=== PATIENT | female | born 1945 | race Caucasian/White ===

== ENCOUNTER 2022-04-23 11:14 | Inpatient (IN) ==
[2022-04-23] MEDS ORDERED: SODIUM CHLORIDE 0.9% 1000ML 1,000 ML IV SCH (12:00)
--- NOTE | 2022-04-23 12:17 | XRay Report ---
XR chest 1V portable CLINICAL HISTORY: fall COMPARISON STUDY: No previous studies for comparison. FINDINGS: Left subclavian pacer/AICD is in place. There is severe osteoarthritis of both shoulders. N o pneumothorax or pleural effusion. No consolidation to suggest pneumonia. Cardiac size is normal. Me diastinal contours are normal. Pulmonary vascularity is normal. IMPRESSION: No acute cardiopulmonary findings. ACT 112: Negative or not required by law. Electronically signed by: Gaudencio Land M.D. 04/23/2022 12:16 PM
--- NOTE | 2022-04-23 12:19 | XRay Report ---
XR hip RT min 2V CLINICAL HISTORY: fall COMPARISON: None FINDINGS: Note is made of an acute comminuted intertrochanteric fracture of the right femur. Fractur e is displaced approximately 1.2 cm. Fracture is angulated. No acute fractures are identified within visualized portions of the pelvis. IMPRESSION: Acute comminuted, displaced and angulated intertrochanteric fracture of the right femur. ACT 112: Negative or not required by law. Electronically signed by: Gaudencio Land M.D. 04/23/2022 12:17 PM
[2022-04-23] MEDS ORDERED: MoRPHine SULFATE 2 MG/ML CARP IV STA (12:30)
[2022-04-23] MEDS ORDERED: ACETAMINOPHEN 1,000 MG/100 ML VIAL IV STA (12:30)
[2022-04-23] MEDS ORDERED: ONDANSETRON INJ 2 MG/ML 2 ML VIAL IV STA (12:30)
[2022-04-23 12:32] LABS: Basophils # (auto) 0.02 K/uL (0-0.2); Basophils % (auto) 0.3 %; Eosinophils # (auto) 0.09 K/uL (0-0.50); Eosinophils % (auto) 1.2 %; Hematocrit (blood only) 36.2 % (34.1-44.9); Hemoglobin 11.8 g/dl (12.0-16.0); Immature Granulocytes # (auto) 0.06 K/uL (0.00-0.02); Immature Granulocytes % (auto) 0.8 %; Lymphocytes # (auto) 0.72 K/uL (1.2-3.4); Lymphocytes % (auto) 9.8 %; Mean Corpuscular Hemoglobin 31.1 pg (25.0-34.0); Mean Corpuscular Hgb Conc 32.6 g/dL (32.0-36.0); Mean Corpuscular Volume 95.3 fL (80.0-100.0); Mean Platelet Volume 9.5 fL (9.4-12.3); Monocytes # (auto) 0.52 K/uL (0.24-0.82); Monocytes % (auto) 7.1 %; Neutrophils # (auto) 5.96 K/uL (1.4-6.5); Neutrophils % (auto) 80.8 %; Platelet Count 224 K/uL (130-400); RDW Coefficient of Variation 13.7 % (11.5-14.5); RDW Standard Deviation 47.8 fL (36.4-46.3); White Blood Count 7.37 K/ul (4.8-10.8)
[2022-04-23 12:42] LABS: Partial Thromboplastin Ratio 0.8; Partial Thromboplastin Time 21.5 Seconds (21.0-31.0); Prothrombin Time 10.6 Seconds (9.0-12.0)
[2022-04-23 12:55] LABS: Alanine Aminotransferase 11 U/L (7-52); Albumin Level 4.2 gm/dl (3.4-5.0); Alkaline Phosphatase 65 U/L (34-104); Anion Gap 10 (3-11); Aspartate Aminotransferase 19 U/L (13-39); BUN Creatinine Ratio 17.6 (10-20); Bilirubin,Total 0.5 mg/dl (0.2-1.0); Blood Urea Nitrogen 23 mg/dl (6-23); Calcium 9.2 mg/dl (8.5-10.1); Carbon Dioxide 28 mmol/L (21-32); Chloride 102 mmol/L (98-107); Est GFR (African American) 45.1 ml/min; Est GFR (Non-African American) 38.9 ml/min; Globulin 2.1 gm/dl (2.5-4.0); Glucose 110 mg/dl (70-99(Fasting)); Potassium 3.8 mmol/L (3.5-5.1); Sodium 140 mmol/L (136-145); Total Protein 6.3 gm/dl (6.0-8.3)
[2022-04-23 13:14] LABS: Appearance Urine Clear (Clear); Bilirubin Urine Negative (Negative); Blood Urine Negative (Negative); Color Urine Yellow; Glucose Urine UA Negative (Negative); Ketones Urine Negative (Negative); Leukocyte Esterase Urine Negative (Negative); Nitrite Urine Negative (Negative); Protein Urine Negative (Negative); Specific Gravity Urine 1.007 (1.000-1.030); Urobilinogen Urine Negative (Negative)
--- NOTE | 2022-04-23 13:21 | Emergency Department Note ---
Impression & Plan Fracture of right hip, Cardiomyopathy, H/O non-Hodgkin's lymphoma ED Provider Note CHIEF COMPLAINT: Right hip pain after fall HISTORY OF PRESENT ILLNESS: This 76-year-old female patient presents to the emergency department with complaints of right hip pain after a fall in the parking lot. Patient states she tripped and believes she fell onto her side. She denies any injury to the abdomen, chest, head or neck. She immediately felt pain in the right hip. She denies any syncope or chest palpitations. Patient states she fell last year over her cat and broke her left wrist. She also has an "artificial knee" in the left leg. Patient states a bystander lifted her into her son's car she was then unable to get out of the car without help from the hospital staff. She has not been able to bear weight on the right leg. The patient has had nothing to eat since last evening. She states she did not eat prior to the football game. REVIEW OF SYSTEMS: A review of systems was performed with positives and pertinent negatives listed in the history of present illness. 10 systems were reviewed and are otherwise negative. ALLERGIES: see below MEDICATIONS: see below PMH: see below SOCIAL HISTORY: see below DDx: Fracture, subluxation, dislocation, contusion, ligamentous injury, neurovascular, compartment syndrome, rhabdomyolysis, as well as other pathologies. PHYSICAL EXAM: Vital signs reviewed. General: Well-appearing 76-year-old female, in no significant distress. HEENT: No scleral icterus, PERRLA, neck supple. Atraumatic. Cardiovascular: Regular rate and rhythm, no extra sounds. Pulmonary: Clear to auscultation bilaterally, normal work of breathing. Abdomen: Soft, nontender, nondistended, positive bowel sounds. Musculoskeletal: Atraumatic, no peripheral edema. Tender to palpation in the right hip, pain with range of motion. Neurovascularly intact distally. Nontender to palpation over the cervical spine. Neurologic: Patient awake alert and oriented x 3, speech is clear Skin: Warm, dry, no rash EMERGENCY DEPARTMENT COURSE/MDM: This was evaluated and appeared to be in no significant distress. IV access was obtained and laboratory work was drawn. The patient was placed on the nurse monitoring and noted to be in a normal sinus rhythm. Patient was hydrated with normal saline solution, given IV morphine and Zofran with IV Tylenol for her discomfort. Patient's was very upset about the events preceding but was noted to have a fractured right hip on x-ray. She was informed of the findings. Orthopedics, Dr. Clemens was notified of her presence in the department. She was discussed with the hospitalist service will evaluate the patient for admission and further management. Patient expressed understanding of the plan and agreed. MONITORING: An order for cardiac monitoring was placed and the patient is noted to be in a paced rhythm at 70 beats per minute. RADIOLOGY: See below EKG: Atrially sensed and ventricularly paced at 63 bpm, normal ST segments. DISPOSITION: Admission Past Med/Surg History Medical History Anxiety Artificial cardiac pacemaker CHF (congestive heart failure) Depression Dyslipidemia Gout Herpetic gingivostomatitis Hypercholesteremia Hyperparathyroidism Hypertension Kidney disease, chronic, stage III (GFR 30-59 ml/min) Left bundle branch block (LBBB) Menopause Non Hodgkin's lymphoma remission Osteoarthritis Osteoporosis PONV (postoperative nausea and vomiting) Renal hypertension Social History Smoking Status: Never smoker Hx Alcohol Use: No Hx Substance Use: No Preferred Language: Kiswahili Communication Ability: Effective Music Coordinator Required: No Beliefs That Will Affect Care: None Current Living Situation: Spouse Feels Safe at Home: Yes Assistive Devices: Cane, Denture - Lower, Glasses and Walker Allergies Allergies Allergy/AdvReac Type Severity Reaction Status Date / Time No Known Allergies Allergy Unverified 04/24/22 07:07 Home Meds Home Medications Medication Instructions Recorded Confirmed Aspir-81 81 mg HS 04/23/22 04/23/22 allopurinol 100 mg tablet 100 mg DAILY 04/23/22 04/23/22 alprazolam 0.25 mg tablet 0.25 mg PO DAILY PRN severe anxiety 04/23/22 04/23/22 metoprolol succinate 50 mg 25 mg PO QAM 04/23/22 04/23/22 tablet,extended release 24 hr oxycodone-acetaminophen 5 mg-325 1 tab Q4H PRN Pain 04/23/22 04/23/22 mg tablet paroxetine HCl 10 mg tablet 10 mg PO DAILY 04/23/22 04/23/22 simvastatin 20 mg tablet 20 mg HS 04/23/22 04/23/22 torsemide 20 mg tablet 20 mg DAILY 04/23/22 04/23/22 Previous Rx's Medication Instructions Recorded apixaban 2.5 mg tablet (Eliquis) 2.5 mg PO BID 30 days #60 tabs 04/26/22 ergocalciferol (vitamin D2) 1,250 50,000 unit PO Q7D #4 caps 04/26/22 mcg (50,000 unit) capsule Results & Data (ED) Vital Signs Vital Signs - 24 hr 04/23/22 11:14 04/23/22 12:00 Temperature 36.5 C Temperature Source Temporal Artery Scan Pulse Rate 63 70 Pulse Rhythm Regular Respiratory Rate 18 16 Blood Pressure 120/74 Blood Pressure Mean 89 Pulse Oximetry 97 98 Oxygen Delivery Method Room Air Sepsis Recent Fever Within 48 Hours No Sepsis New/Unexplained Change in Mental Status N/A Sepsis Action Taken by Nursing No Action Required Home Medications Current Medication List: was personally reviewed by me Laboratory Data Attestation: I reviewed the patient's lab results. Result diagrams: 04/26/22 09:04 04/25/22 06:24 Lab Results 04/23/22 04/23/22 04/23/22 Range/Units 12:06 12:06 12:06 WBC 7.37 (4.8-10.8) K/ul RBC 3.80 L (3.93-5.22) M/uL Hgb 11.8 L (12.0-16.0) g/dl Hct 36.2 (34.1-44.9) % MCV 95.3 (80.0-100.0) fL MCH 31.1 (25.0-34.0) pg MCHC 32.6 (32.0-36.0) g/dL RDW Std Deviation 47.8 H (36.4-46.3) fL RDW Coeff of [place]per 13.7 (11.5-14.5) % Plt Count 224 (130-400) K/uL MPV 9.5 (9.4-12.3) fL Immature Gran % (Auto) 0.8 % Neut % (Auto) 80.8 % Lymph % (Auto) 9.8 % [place] % (Auto) 7.1 % Eos % (Auto) 1.2 % Baso % (Auto) 0.3 % Neut # (Auto) 5.96 (1.4-6.5) K/uL Lymph # (Auto) 0.72 L (1.2-3.4) K/uL [place] # (Auto) 0.52 (0.24-0.82) K/uL Eos # (Auto) 0.09 (0-0.50) K/uL Baso # (Auto) 0.02 (0-0.2) K/uL Immature Gran # (Auto) 0.06 H (0.00-0.02) K/uL PT 10.6 (9.0-12.0) Seconds INR 1.0 (0.9-1.1) APTT 21.5 (21.0-31.0) Seconds PTT Ratio 0.8 Sodium 140 (136-145) mmol/L Potassium 3.8 (3.5-5.1) mmol/L Chloride 102 (98-107) mmol/L Carbon Dioxide 28 (21-32) mmol/L Anion Gap 10 (3-11) BUN 23 (6-23) mg/dl Creatinine 1.31 H (0.6-1.2) mg/dl Est Cr Clr Drug Dosing Not Reportable Est GFR ( Amer) 45.1 ml/min Est GFR (Non-Af Amer) 38.9 ml/min BUN/Creatinine Ratio 17.6 (10-20) Glucose 110 H (70-99(Fasting)) mg/dl Calcium 9.2 (8.5-10.1) mg/dl Total Bilirubin 0.5 (0.2-1.0) mg/dl AST 19 (13-39) U/L ALT 11 (7-52) U/L Alkaline Phosphatase 65 (34-104) U/L Total Protein 6.3 (6.0-8.3) gm/dl Albumin 4.2 (3.4-5.0) gm/dl Globulin 2.1 L (2.5-4.0) gm/dl Albumin/Globulin Ratio 2.0 (0.9-2) Urine Color Urine Appearance (Clear) Urine pH (4.5-7.5) Ur Specific [place] (1.000-1.030) Urine Protein (Negative) Urine Glucose (UA) (Negative) Urine Ketones (Negative) Urine Blood (Negative) Urine Nitrite (Negative) Urine Bilirubin (Negative) Urine Urobilinogen (Negative) Ur Leukocyte Esterase (Negative) SARS-CoV-2, RNA, NAAT (NEGATIVE) 04/23/22 04/23/22 Range/Units 12:06 12:55 WBC (4.8-10.8) K/ul RBC (3.93-5.22) M/uL Hgb (12.0-16.0) g/dl Hct (34.1-44.9) % MCV (80.0-100.0) fL MCH (25.0-34.0) pg MCHC (32.0-36.0) g/dL RDW Std Deviation (36.4-46.3) fL RDW Coeff of [place] (11.5-14.5) % Plt Count (130-400) K/uL MPV (9.4-12.3) fL Immature Gran % (Auto) % Neut % (Auto) % Lymph % (Auto) % [place] % (Auto) % Eos % (Auto) % Baso % (Auto) % Neut # (Auto) (1.4-6.5) K/uL Lymph # (Auto) (1.2-3.4) K/uL [place] # (Auto) (0.24-0.82) K/uL Eos # (Auto) (0-0.50) K/uL Baso # (Auto) (0-0.2) K/uL Immature Gran # (Auto) (0.00-0.02) K/uL PT (9.0-12.0) Seconds INR (0.9-1.1) APTT (21.0-31.0) Seconds PTT Ratio Sodium (136-145) mmol/L Potassium (3.5-5.1) mmol/L Chloride (98-107) mmol/L Carbon Dioxide (21-32) mmol/L Anion Gap (3-11) BUN (6-23) mg/dl Creatinine (0.6-1.2) mg/dl Est Cr Clr Drug Dosing Est GFR ( Amer) ml/min Est GFR (Non-Af Amer) ml/min BUN/Creatinine Ratio (10-20) Glucose (70-99(Fasting)) mg/dl Calcium (8.5-10.1) mg/dl Total Bilirubin (0.2-1.0) mg/dl AST (13-39) U/L ALT (7-52) U/L Alkaline Phosphatase (34-104) U/L Total Protein (6.0-8.3) gm/dl Albumin (3.4-5.0) gm/dl Globulin (2.5-4.0) gm/dl Albumin/Globulin Ratio (0.9-2) Urine Color Yellow Urine Appearance Clear (Clear) Urine pH 5.0 (4.5-7.5) Ur Specific [place] 1.007 (1.000-1.030) Urine Protein Negative (Negative) Urine Glucose (UA) Negative (Negative) Urine Ketones Negative (Negative) Urine Blood Negative (Negative) Urine Nitrite Negative (Negative) Urine Bilirubin Negative (Negative) Urine Urobilinogen Negative (Negative) Ur Leukocyte Esterase Negative (Negative) SARS-CoV-2, RNA, NAAT NEGATIVE (NEGATIVE) Administered Medications Discontinued Medications Acetaminophen (Acetaminophen 325 Mg Tab) 650 mg PO Q8H PRN PRN Reason: MILD Pain or Fever Stop: 05/23/22 14:02 Last Admin: 04/26/22 05:48 Dose: 650 mg Documented By: Admin: 04/24/22 10:51 Dose: 650 mg Documented By: Admin: 04/23/22 22:39 Dose: 650 mg Documented By: [id number] Allopurinol (Allopurinol 100 Mg Tab) 100 mg PO DAILY [facility] Stop: 05/24/22 08:59 Last Admin: 04/26/22 08:09 Dose: 100 mg Documented By: Admin: 04/25/22 08:54 Dose: 100 mg Documented By: Admin: 04/24/22 07:55 Dose: 100 mg Documented By: ESTEFANÍA Apixaban (Apixaban 2.5 Mg Tab) 2.5 mg PO BID [facility] Stop: 05/25/22 08:59 Last Admin: 04/26/22 08:09 Dose: 2.5 mg Documented By: Admin: 04/25/22 20:44 Dose: 2.5 mg Documented By: Admin: 04/25/22 08:54 Dose: 2.5 mg Documented By: JUDITH Bupivacaine HCl/Epinephrine Bitart (Bupivacaine/Epinephrine 0.25% 1:200,000 30 Ml Vial) Confirm Administered Dose 30 ml .ROUTE .[facility] Stop: 04/24/22 12:16 Last Admin: 04/24/22 13:31 Dose: 30 ml Documented By: NICHOLAS Ergocalciferol (Ergocalciferol 50,000 Units 1250 Mcg Cap) 50,000 units PO Q7D CATHLEEN Stop: 05/25/22 09:29 Last Admin: 04/25/22 11:02 Dose: 50,000 units Documented By: JUDITH Sodium Chloride (Nss 1000ml) 1,000 mls @ 125 mls/hr IV .Q8H CATHLEEN Stop: 04/23/22 19:59 Last Infusion: 04/23/22 14:40 Dose: 0 mls/hr Documented By: Admin: 04/23/22 12:04 Dose: 125 mls/hr Documented By: FRANCISCO Acetaminophen (Ofirmev) 1,000 mg in 100 mls @ 400 mls/hr IV NOW STA Stop: 04/23/22 12:44 Last Infusion: 04/23/22 12:59 Dose: 0 mls/hr Documented By: Admin: 04/23/22 12:38 Dose: 400 mls/hr Documented By: STACY Cefazolin Sodium (Ancef 2000mg) 2,000 mg in 15 mls @ 3.75 mls/min IV PREOP ONE Stop: 04/24/22 12:40 Last Admin: 04/24/22 13:02 Dose: 3.75 mls/min Documented By: MARCUS Magnesium Hydroxide (Magnesium Hydroxide Susp 30 Ml Udc) 30 ml PO Q12H PRN PRN Reason: Constipation Stop: 05/23/22 14:02 Last Admin: 04/26/22 10:13 Dose: 30 ml Documented By: NITO Metoprolol Succinate (Metoprolol Succ 25mg Ext Rel Tab) 25 mg PO QAM CATHLEEN Stop: 05/24/22 08:59 Last Admin: 04/26/22 08:09 Dose: 25 mg Documented By: Admin: 04/25/22 08:54 Dose: 25 mg Documented By: Admin: 04/24/22 07:55 Dose: 25 mg Documented By: ESTEFANÍA Morphine Sulfate (Morphine Sulfate 2 Mg/Ml Carp) 2 mg IV NOW STA Stop: 04/23/22 12:31 Last Admin: 04/23/22 12:38 Dose: 2 mg Documented By: STACY Morphine Sulfate (Morphine Sulfate 2 Mg/Ml Carp) 1 mg IV Q6H PRN PRN Reason: SEVERE Pain Stop: 05/07/22 15:04 Last Admin: 04/25/22 10:52 Dose: 1 mg Documented By: Admin: 04/24/22 06:29 Dose: 1 mg Documented By: Admin: 04/23/22 23:42 Dose: 1 mg Documented By: GREG Ondansetron HCl (Ondansetron Inj 2 Mg/Ml 2 Ml Vial) 4 mg IV NOW STA Stop: 04/23/22 12:31 Last Admin: 04/23/22 12:38 Dose: 4 mg Documented By: STACY Ondansetron HCl (Ondansetron Inj 2 Mg/Ml 2 Ml Vial) 4 mg IV Q6H PRN PRN Reason: Nausea Stop: 05/23/22 14:02 Last Admin: 04/25/22 10:52 Dose: 4 mg Documented By: JUDITH Oxycodone/Acetaminophen (Oxycodone/Acetaminophen 5mg/325mg Tab) 1 tab PO Q4H PRN PRN Reason: MODERATE Pain Stop: 05/07/22 15:04 Last Admin: 04/26/22 10:13 Dose: 1 tab Documented By: Admin: 04/25/22 20:44 Dose: 1 tab Documented By: Admin: 04/25/22 15:45 Dose: 1 tab Documented By: Admin: 04/25/22 08:59 Dose: 1 tab Documented By: Admin: 04/23/22 16:01 Dose: 1 tab Documented By: [id number] Paroxetine HCl (Paroxetine Hcl 10 Mg Tab) 10 mg PO DAILY CATHLEEN Stop: 05/24/22 08:59 Last Admin: 04/26/22 08:09 Dose: 10 mg Documented By: Admin: 04/25/22 08:54 Dose: 10 mg Documented By: Admin: 04/24/22 07:55 Dose: 10 mg Documented By: ESTEFANÍA Simvastatin (Simvastatin 20 Mg Tab) 20 mg PO HS CATHLEEN Stop: 05/23/22 20:59 Last Admin: 04/25/22 20:44 Dose: 20 mg Documented By: Admin: 04/24/22 21:14 Dose: 20 mg Documented By: Admin: 04/23/22 20:23 Dose: 20 mg Documented By: [id number] Imaging Data Radiologist's Impression: Hip X-Ray 04/23/22 11:49 XR hip RT min 2V CLINICAL HISTORY: fall COMPARISON: None FINDINGS: Note is made of an acute comminuted intertrochanteric fracture of the right femur. Fracture is displaced approximately 1.2 cm. Fracture is angulated. No acute fractures are identified within visualized portions of the pelvis. IMPRESSION: Acute comminuted, displaced and angulated intertrochanteric fracture of the right femur. ACT 112: Negative or not required by law. Electronically signed by: Gaudencio Land M.D. 04/23/2022 12:17 PM Chest X-Ray 04/23/22 11:50 XR chest 1V portable CLINICAL HISTORY: fall COMPARISON STUDY: No previous studies for comparison. FINDINGS: Left subclavian pacer/AICD is in place. There is severe osteoarthritis of both shoulders. No pneumothorax or pleural effusion. No consolidation to suggest pneumonia. Cardiac size is normal. Mediastinal contours are normal. Pulmonary vascularity is normal. IMPRESSION: No acute cardiopulmonary findings. ACT 112: Negative or not required by law. Electronically signed by: Gaudencio Land M.D. 04/23/2022 12:16 PM Blood Pressure Blood Pressure Findings: Elevated blood pressure Blood Pressure Disposition: Referred to patients primary care provider Discharge Plan Visit Data Chief Complaint: Fall Stated Complaint: FALL ED Provider: Shweta Kumar Discharge Problem: Fracture of right hip, Cardiomyopathy, H/O non-Hodgkin's lymphoma Patient Disposition: Admitted As Inpatient Discharge Instructions Interventions: ED Discharge Assessment Last Done: 04/23/22 14:39
--- NOTE | 2022-04-23 13:53 | History & Physical Report ---
Date of Service April 23, 2022 Assessment & Plan (1) Intertrochanteric fracture of right hip: Plan Mechanical fall Right hip fracture on the background of age-related osteoporosis Patient tripped on her own shoes, fell on her right side on pavement Patient has only drank soda in the morning, has not eaten anything. Admitting hip x-ray with acute comminuted, displaced and angulated intertrochanteric fracture of the right femur Pain management, discussed with orthopedics, OR today later in the day, later canceled, resuming diet, n.p.o. midnight. RCRI index 6.0% 30-day risk of , CT or cardiac arrest for this needed surgery. Caution with HTN meds in perioperative period CBC in a.m., watch out for blood loss anemia Diet after surgery, PT OT and DVT prophylaxis per Ortho. Other chronic medical conditions: Medications reviewed with patient, resume other meds as and when able DVT prophylaxis: SCDs for now, for OR likely juan. Full code History of Present Illness Chief Complaint: Fall Primary Care Provider: Conor Lopez MD 76-year-old lady with PMH of hyperparathyroidism secondary to renal, gout, nonischemic cardiomyopathy likely secondary to chemotherapy in the past, HTN, systolic congestive heart failure, CKD stage IIIb, vitamin D deficiency, age- related osteoporosis, lymphoma, status post ICD and depression/anxiety presented to our hospital 04/23 after tripping/fall. Per patient, she was trying to get on the shuttle for football game today when she might have " self tripped"/caught her one shoe on another shoe, fell on right side on the pavement and found to have right femoral fracture in the ED. Patient reports being able to walk 3-4 blocks and able to climb 2-3 flight of stairs without chest pain or shortness of breath in the recent past, denies any fever/chills/cough/chest pain/palpitations/belly pain/acute changes in bowel or bladder habits/headache/dizziness/sore throat/other review of symptoms. Patient denies smoking tobacco/use of alcohol/use of recreational drugs. Family history of heart problems in uncle and cancer in mother. Cancer and hypertension in father. Full code Home Medications Medication Instructions Recorded Confirmed Type Aspir-81 81 mg HS 04/23/22 04/23/22 History allopurinol 100 mg tablet 100 mg DAILY 04/23/22 04/23/22 History alprazolam 0.25 mg tablet 0.25 mg PO DAILY PRN severe anxiety 04/23/22 04/23/22 History lisinopril 10 mg tablet 10 mg QAM 04/23/22 04/23/22 History metoprolol succinate 50 mg 25 mg PO QAM 04/23/22 04/23/22 History tablet,extended release 24 hr oxycodone-acetaminophen 5 mg-325 1 tab Q4H PRN Pain 04/23/22 04/23/22 History mg tablet paroxetine HCl 10 mg tablet 10 mg PO DAILY 04/23/22 04/23/22 History simvastatin 20 mg tablet 20 mg HS 04/23/22 04/23/22 History torsemide 20 mg tablet 20 mg DAILY 04/23/22 04/23/22 History Past Med/Surg History Medical History Anxiety Artificial cardiac pacemaker CHF (congestive heart failure) Depression Dyslipidemia Gout Herpetic gingivostomatitis Hypercholesteremia Hyperparathyroidism Hypertension Kidney disease, chronic, stage III (GFR 30-59 ml/min) Left bundle branch block (LBBB) Menopause Non Hodgkin's lymphoma remission Osteoarthritis Osteoporosis PONV (postoperative nausea and vomiting) Renal hypertension Social History Smoking Status: Former smoker Preferred Language: Bolivian Feels Safe at Home: Yes Review of Systems Review of Systems: Negative otherwise mentioned in HPI. Physical Exam Physical Exam: GENERAL: Alert and oriented x3. NAD, on RA. HEENT: No pallor, no icterus. Pupils equal, round and reactive to light. Oral mucosa moist. NECK: No JVD, no neck masses. HEART: S1 and S2 heard. Regular rate and rhythm. No murmur, no gallop. RESPIRATORY SYSTEM: Normal AP diameter. No accessory muscle use. No wheezing, no crackles. ABDOMEN: Soft, bowel sounds present, nontender, no distention. CENTRAL NERVOUS SYSTEM: No facial droop. Speech is clear. Obeys simple commands. Moves extremities. EXTREMITIES: No edema, no erythema seen. RLE w/ decrease ROM, Rt Hip tender w/ palpation/movement. distal NV status wnl. No open wound or bruise on Rt hip. Urinary catheter with maile urine collection noted. Results & Data Results & Data ([facility]) Vital Signs (Past 12 Hours) Vital Signs Temp Pulse Resp BP Pulse Ox O2 Del Method 04/23/22 12:00 70 16 98 Room Air 04/23/22 11:14 36.5 C 63 18 120/74 97
--- NOTE | 2022-04-23 13:55 | Orthopedic Consultation ---
Date of Service April 23, 2022 Assessment & Plan (1) Intertrochanteric fracture of right hip: We discussed the diagnosis and treatment options with her and her . I recommended proceeding with an intramedullary nail fixation of her right hip. Her and her understand the risk, benefits, and alternatives procedure elected to proceed. Questions were answered at bedside and consents were signed. Time was spent scribed procedure and post expectations. We will likely proceed with the surgery tomorrow. History of Present Illness Reason for Consultation: Intertrochanteric fracture of the right hip. Requesting Physician: . Crystal is a pleasant 76-year-old female who is an independent ambulator without assistance. She lives with her . She fell in a parking lot earlier today and sustained a right intertrochanteric hip fracture. She came to the emergency room. Radiographs confirm the fracture. She was admitted to the medical service. Orthopedics was consulted to evaluate and treat.. Past Med/Surg History Medical History Anxiety Artificial cardiac pacemaker CHF (congestive heart failure) Depression Dyslipidemia Gout Herpetic gingivostomatitis Hypercholesteremia Hyperparathyroidism Hypertension Kidney disease, chronic, stage III (GFR 30-59 ml/min) Left bundle branch block (LBBB) Menopause Non Hodgkin's lymphoma remission Osteoarthritis Osteoporosis PONV (postoperative nausea and vomiting) Renal hypertension Social History Smoking Status: Former smoker Preferred Language: Gabonese Feels Safe at Home: Yes Review of Systems All systems reviewed & are unremarkable except as noted in HPI & below. Physical Exam On physical examination of the right hip, she is shortened and externally rotated. Her skin quality looks good.. Constitutional WD/WN, vitals as above Eyes PERRL, conjunctivae normal, anicteric sclerae ENMT external ear and nose normal, oropharynx normal Neck trachea midline, no thyromegaly Respiratory normal respiratory effort, lungs clear to auscultation Cardiovascular RRR, no murmur, no edema Gastrointestinal (Abdomen) normal bowel sounds, soft, nontender, no hepatosplenomegaly Skin no rashes, warm and dry Psychiatric A+Ox3, euthymic affect Results & Data Results & Data Laboratory Results . Diagnostic Findings X-rays of the right hip show a displaced right intertrochanteric hip fracture.. PG Care Time/CCT Total # of Minutes Spent Total Time Spent with Patient: Total time spent is greater than 50% in coordination of care (as documented) at patient's floor/unit and/or counseling patient: Coding Level of Care Code 89717 Inpt Consult Level 4 (57 - DECISION FOR SURGERY) Diagnoses Intertrochanteric fracture of right hip S72.141A
[2022-04-23] MEDS ORDERED: MAGNESIUM HYDROXIDE SUSP 30 ML UDC PO PRN (14:03)
[2022-04-23] MEDS ORDERED: ONDANSETRON INJ 2 MG/ML 2 ML VIAL IV PRN (14:03)
[2022-04-23] MEDS ORDERED: POLYETHYLENE (MIRALAX) 17 GM PACK PO PRN (14:03)
[2022-04-23] MEDS ORDERED: ALUMINUM/MAGNESIUM SUSP 30 ML UDC PO PRN (14:03)
--- NOTE | 2022-04-23 15:59 | Anesthesiology Consultation ---
Date of Service April 23, 2022 Assessment & Plan Chart Review Chart Review: Patient NOT seen in Pre Admission Testing Consults Requested cardiac ASA ASA4 Proposed Anesthesia Anesthesia Type: General Anesthesia Line Insertion: Arterial line History Surgery Operation Date: 04/23/22 15:30 Proposed Procedures p Right Intramedullary Samy Femur(Right) - Taurus Clemens DO Operation Date: 04/24/22 10:00 Proposed Procedures p Right Intramedullary Samy Femur(Right) - Taurus Clemens DO Height/Weight Height: 5 ft 4 in Weight: 66.6 kg Medications Home Medications Medication Instructions Recorded Confirmed Last Taken Aspir-81 81 mg HS 04/23/22 04/23/22 Unknown allopurinol 100 mg tablet 100 mg DAILY 04/23/22 04/23/22 Unknown alprazolam 0.25 mg tablet 0.25 mg PO DAILY PRN severe anxiety 04/23/22 04/23/22 Unknown lisinopril 10 mg tablet 10 mg QAM 04/23/22 04/23/22 Unknown metoprolol succinate 50 mg 25 mg PO QAM 04/23/22 04/23/22 Unknown tablet,extended release 24 hr oxycodone-acetaminophen 5 mg-325 1 tab Q4H PRN Pain 04/23/22 04/23/22 Unknown mg tablet paroxetine HCl 10 mg tablet 10 mg PO DAILY 04/23/22 04/23/22 Unknown simvastatin 20 mg tablet 20 mg HS 04/23/22 04/23/22 Unknown torsemide 20 mg tablet 20 mg DAILY 04/23/22 04/23/22 Unknown Active Medications Generic Name Dose Route Start Last Admin Trade Name Freq PRN Reason Stop Dose Admin Sodium Chloride 1,000 mls @ 125 mls/hr 04/23/22 12:00 04/23/22 14:40 Nss 1000ml IV 04/23/22 19:59 Infused .Q8H CATHLEEN Infusion Past Medical History Medical History Anxiety Artificial cardiac pacemaker CHF (congestive heart failure) Depression Dyslipidemia Gout Herpetic gingivostomatitis Hypercholesteremia Hyperparathyroidism Hypertension Kidney disease, chronic, stage III (GFR 30-59 ml/min) Left bundle branch block (LBBB) Menopause Non Hodgkin's lymphoma remission Osteoarthritis Osteoporosis PONV (postoperative nausea and vomiting) Renal hypertension Exercise / Class Metabolic Activity III < 4 Walking/Shop/Light housework Past Anesthesia History No Hx of Anesthesia Complications and No Family Hx of Anesthesia Complications History of PONV No Hx of PONV and No Hx of Motion Sickness Social History Smoking Status: Never smoker Hx Alcohol Use: No Hx Substance Use: No Physical Exam Vital Signs Last Vital Signs Temp 36.7 C 04/23/22 15:12 Pulse 61 04/23/22 15:12 Resp 18 04/23/22 15:12 BP 166/71 H 04/23/22 15:12 Pulse Ox 97 04/23/22 15:12 O2 Del Method 04/23/22 15:12 Testing Laboratory Results 04/23/22 12:06 04/23/22 12:06 PT 10.6 Seconds (9.0-12.0) 04/23/22 12:06 INR 1.0 (0.9-1.1) 04/23/22 12:06 APTT 21.5 Seconds (21.0-31.0) 04/23/22 12:06 Urine Color Yellow 04/23/22 12:55 Urine Appearance Clear (Clear) 04/23/22 12:55 Urine pH 5.0 (4.5-7.5) 04/23/22 12:55 Ur Specific [place] 1.007 (1.000-1.030) 04/23/22 12:55 Urine Protein Negative (Negative) 04/23/22 12:55 Urine Glucose (UA) Negative (Negative) 04/23/22 12:55 Urine Ketones Negative (Negative) 04/23/22 12:55 Urine Nitrite Negative (Negative) 04/23/22 12:55 Ur Leukocyte Esterase Negative (Negative) 04/23/22 12:55 Electrocardiogram Date: 04/23/22 Atrial sensed,ventricular paced @ 63 Chest X-Ray Date: 04/23/22 Findings: + NAD left subclavian pacer/aicd in situ
[2022-04-23] MEDS: oxyCODONE/ACETAMINOPHEN 5mg/325mg TAB PO PRN (16:01)
--- NOTE | 2022-04-23 16:19 | Communication Note ---
Date of Service: April 23, 2022 I have spoken w/ [facility] hospitalist,Dr Victor, about lack of medical and cardiology records of patient. He said he will access the [employer] system and make copies of her records and scan them into her chart here at [facility].
[2022-04-23] MEDS: SIMVASTATIN 20 MG TAB PO SCH (20:23)
[2022-04-23] MEDS: ACETAMINOPHEN 325 MG TAB PO PRN (22:39)
[2022-04-23] MEDS: MoRPHine SULFATE 2 MG/ML CARP IV PRN (23:42)
[2022-04-24] MEDS: MoRPHine SULFATE 2 MG/ML CARP IV PRN (06:29)
[2022-04-24 07:01] LABS: Hematocrit (blood only) 32.8 % (34.1-44.9); Hemoglobin 10.9 g/dl (12.0-16.0); Mean Corpuscular Hemoglobin 31.2 pg (25.0-34.0); Mean Corpuscular Hgb Conc 33.2 g/dL (32.0-36.0); Mean Platelet Volume 9.3 fL (9.4-12.3); Platelet Count 176 K/uL (130-400); RDW Coefficient of Variation 13.9 % (11.5-14.5); RDW Standard Deviation 47.4 fL (36.4-46.3); Red Blood Count 3.49 M/uL (3.93-5.22); White Blood Count 5.51 K/ul (4.8-10.8)
[2022-04-24 07:30] LABS: BUN Creatinine Ratio 18.3 (10-20); Calcium 8.3 mg/dl (8.5-10.1); Creatinine Clr Calc Pharmacy 36.4 ml/min; Est GFR (African American) 50.1 ml/min; Est GFR (Non-African American) 43.3 ml/min; Phosphorus 3.5 mg/dl (2.5-4.9); Potassium 3.7 mmol/L (3.5-5.1)
[2022-04-24] MEDS: PARoxetine HCL 10 MG TAB PO SCH (07:55)
[2022-04-24] MEDS: METOPROLOL SUCC 25MG EXT REL TAB PO SCH (07:55)
[2022-04-24] MEDS: allopurinoL 100 MG TAB PO SCH (07:55)
--- NOTE | 2022-04-24 08:58 | Communication Note ---
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 He conveyed pertinent information to me. Echo(05/26/2021) LVEF-45%;normal valves; her EF has improved from 20-25%. 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 She was last seen in clinic in December 2021. She was stable w/o s/sx's of heart narindermichelle osuna. She has a BIV AICD. she is not pacemaker dependent. It's OK to place a magnet over AICD during surgery.
[2022-04-24] MEDS ORDERED: lisinopril 10 MG TAB PO SCH (09:00)
[2022-04-24] MEDS ORDERED: TORSEMIDE 20 MG TAB PO SCH (09:00)
[2022-04-24] MEDS: ACETAMINOPHEN 325 MG TAB PO PRN (10:51)
[2022-04-24] MEDS ORDERED: fentaNYL citrate 100 MCG/2 ML VIAL ONE (12:06)
[2022-04-24] MEDS ORDERED: PROPOFOL IV EMULSION 10 MG/ML 20 ML VIAL IV ONE (12:06)
[2022-04-24] MEDS ORDERED: ONDANSETRON INJ 2 MG/ML 2 ML VIAL ONE (12:06)
[2022-04-24] MEDS ORDERED: MIDAZOLAM HCL 1 MG/ML 2ML VIAL ONE (12:06)
[2022-04-24] MEDS ORDERED: LIDOCAINE 2% MPF LOCAL 5 ML VIAL INFIL ONE (12:06)
[2022-04-24] MEDS ORDERED: DEXAMETHASONE SOD INJ 4 MG/ML VIAL ONE (12:06)
[2022-04-24] MEDS ORDERED: BUPIVACAINE/EPINEPHRINE 0.25% 1:200,000 30 ML VIAL ONE (12:15)
[2022-04-24] MEDS ORDERED: fentaNYL citrate 100 MCG/2 ML VIAL IV PRN (12:31)
[2022-04-24] MEDS ORDERED: LABETALOL HCL IV 5 MG/ML 20ML IV PRN (12:31)
[2022-04-24] MEDS ORDERED: ePHEDrine sulfate 50 MG/ML AMP IV PRN (12:31)
[2022-04-24] MEDS ORDERED: HYDROmorphone INJ 1 MG/ML SYRINGE IV PRN (12:31)
[2022-04-24] MEDS ORDERED: PROMETHAZINE HCL 12.5 MG in SODIUM CHLORIDE 0.9% 50 ML IV PRN (12:31)
[2022-04-24] MEDS ORDERED: FLUMAZENIL 0.1 MG/1 ML 10 ML VIAL IV PRN (12:31)
[2022-04-24] MEDS ORDERED: ONDANSETRON INJ 2 MG/ML 2 ML VIAL IV PRN (12:31)
[2022-04-24] MEDS ORDERED: ATROPINE SULFATE 0.1 MG/ML 10ML SYR IV PRN (12:31)
[2022-04-24] MEDS ORDERED: NALOXONE HCL 0.4 MG/1 ML VIAL/CARP IV PRN (12:31)
[2022-04-24] MEDS ORDERED: ceFAZolin 2000MG 2,000 MG/15 ML SYR IV ONE (12:37)
[2022-04-24] MEDS ORDERED: ceFAZolin 330 MG/ML 1 GM VIAL ONE (13:05)
[2022-04-24] MEDS ORDERED: ePHEDrine sulfate 50 MG/ML SYR ONE (13:25)
--- NOTE | 2022-04-24 13:41 | Fluoroscopy Report ---
FL hip RT 2-3V HISTORY: 76 years-old Female RIGHT TROCH NAIL acute fracture of the right hip COMPARISON: Right hip radiographs 04/23/2022 TECHNIQUE: 4 spot fluoroscopic images of the right hip were obtained utilizing 45.0 seconds fluorosco py time FINDINGS: Status post placement of an intratrochanteric nail with medullary pamella fixating the acute intertrochan teric fracture. There is improved near anatomic alignment. The hardware appears intact. Moderate righ t hip osteoarthritis. Expected postoperative soft tissue swelling with deep tissue air. No unexpected opaque foreign body identified. IMPRESSION: Fluoroscopic assistance as above. ACT 112: Negative or not required by law. The above report was generated using voice recognition software. It may contain grammatical, syntax o r spelling errors. Electronically signed by: zO Llanos M.D. 04/24/2022 1:40 PM
--- NOTE | 2022-04-24 14:01 | Operative Report ---
PG Post Operative Report Pre & Post Diagnosis Operation Date: 04/23/22 15:30 <No data on this case meets the specified criteria> Operation Date: 04/24/22 10:00 Pre-Op Diagnosis: Intertrochanteric fracture of right hip. Post-Op Diagnosis: Intertrochanteric fracture of right hip. I identified the patient and participated in the time-out.: Yes Procedure Operation Date: 04/23/22 15:30 <No data on this case meets the specified criteria> Operation Date: 04/24/22 10:00 Actual Procedures p intramedullary nail fixation of the right femur (Right) - Taurus Clemens DO Surgeon Taurus Clemens DO Golf Ball Marker None Estimated Blood Loss 30 Findings Consistent with Post-Op Diagnosis Specimens None Description of Procedure On April 24 2022 Crystal was brought down from her hospital room to the preoperative holding area. The operative extremity identified and signed. She was given a preoperative antibiotic. She was taken back the operating room and put under general anesthesia on the hospital bed. She was then transferred to the fracture table. The right hip was then brought out to traction. Anatomic alignment of the fracture was checked under fluoroscopy. The right hip was then prepped and draped in sterile fashion. A timeout was done. The patient and the operative extremity was properly identified. A longitudinal incision was made just superior to the greater trochanter. Dissection was taken down through the fascia. A guidepin was placed at the tip of the greater trochanter. It was advanced down the femoral canal. Appropriate alignment of the guidepin was checked on orthogonal fluoroscopic images. The proximal femur was then opened up with a 17 mm opening reamer. A 11 mm Synthes TFN short nail was then impacted into place. Appropriate placement was checked on fluoroscopy. A lateral incision was made and the cannula for the helical blade was advanced to the lateral cortex of the femur. A guidepin was placed into the center center position of the femoral head. The helical blade measured to be 90 mm. The lateral cortex was drilled and the helical blade was drilled. The final helical blade was then impacted into place. I was happy with the overall alignment. The fracture was then compressed. The setscrew was then tightened and then released to allow dynamic slide of the helical blade. Attention was turned to the distal locking screw. A cannula was advanced to the lateral cortex of the femur. The distal screw was then drilled and a 32 mm distal locking screw was placed. All cannulas and outriggers were removed. Final fluoroscopic images showed anatomic alignment of the fracture and good placement of the hardware. The wounds were then irrigated. Surrounding soft tissue was injected with 30 cc of Marcaine. The deep fascia was closed with #1 Vicryl. Skin was closed with 2-0 Vicryl and fifi. She was then placed in a soft dressing. She was then extubated and transferred back to the hospital bed. She was taken to the postanesthesia care unit in stable condition. She tolerated the procedure well. I attest to the content of the Intraoperative Record and any orders documented therein. Any exceptions are noted below.
--- NOTE | 2022-04-24 14:15 | Hospitalist Progress Note ---
Date of Service April 24, 2022 Assessment & Plan (1) Intertrochanteric fracture of right hip: Plan Mechanical fall Right hip fracture on the background of age-related osteoporosis Patient tripped on her own shoes, fell on her right side on pavement Admitting hip x-ray with acute comminuted, displaced and angulated intertrochanteric fracture of the right femur for OR today no medical contraindication to proceed with Ortho surgery PRN Percocet, Morphine Lovenox, or Heparin for DVT prophylaxis when ok with Ortho Nonischemic cardiomyopathy, status post AICD Hypertension --Hold torsemide and lisinopril Chronic medical conditions: Hyperparathyroidism Gout Osteoporosis Vitamin D deficiency DVT prophylaxis: SCDs for now, for OR likely juan. Full code Disposition PT and OT evaluation Admission and Anticipated Discharge Date Admission Date: April 23, 2022 Subjective ff up for R hip fracture, etc seen resting in bed, not in distress has R hip pain with movement no chest pain, dyspnea, palpitations, dizziness no other symptoms Review of Systems Review of Systems: all noted and negative except for above Physical Exam Physical Exam: General- oriented x 3, not in distress, speaks in sentences with no effort or accessory muscle use Eyes- anicteric Neck- no JVD Lungs- clear BS bilaterally, no rales/wheezes Heart- normal rate, regular rhythm; no murmurs Abdomen- normal bowel sounds, nondistended, soft, no tenderness Extremities- no pretibial edema, no calf tenderness Neuro- alert, oriented x 3; no gross focal neurologic deficits Skin- warm & dry Results & Data Results & Data ([facility]) Vital Signs (Past 12 Hours) Vital Signs Temp Pulse Resp BP BP Pulse Ox O2 Del Method 04/24/22 12:23 37.1 C 88 18 145/75 H 92 Room Air 04/24/22 06:34 36.8 C 76 18 117/57 L 92 Room Air 04/24/22 04:17 36.4 C L 70 17 121/72 92 Room Air all noted and reviewed including below
--- NOTE | 2022-04-24 14:33 | Anesthesiology Progress Note ---
Date of Service April 24, 2022 Anesthesia Post Procedure Vital Signs Vital Signs: Temp Pulse Pulse Pulse Resp BP BP 04/24/22 14:05 83 21 118/77 118/77 04/24/22 13:56 36.3 C L 87 19 162/79 H 162/79 H 04/24/22 12:23 37.1 C 88 18 145/75 H 04/24/22 06:34 36.8 C 76 18 117/57 L 04/24/22 04:17 36.4 C L 70 17 121/72 04/24/22 00:07 70 04/23/22 23:17 36.9 C 69 18 134/78 04/23/22 18:40 36.5 C 70 16 147/78 H 04/23/22 16:02 66 04/23/22 15:12 36.7 C 61 18 166/71 H 04/23/22 14:38 52 L 16 138/83 Pulse Ox O2 Del Method O2 Flow Rate 04/24/22 14:05 95 Oxymask 6 04/24/22 13:56 93 Oxymask 6 04/24/22 12:23 92 Room Air 04/24/22 06:34 92 Room Air 04/24/22 04:17 92 Room Air 04/24/22 00:07 04/23/22 23:17 94 Room Air 04/23/22 18:40 96 Room Air 04/23/22 16:02 04/23/22 15:12 97 Room Air 04/23/22 14:38 96 Room Air Pain Intensity Right Hip: Pain Intensity: 4 Transfer of Care Handoff Completed per policy Notes Mental Status: alert / awake / arousable Patient Amnestic to Procedure: Yes Nausea / Vomiting: adequately controlled Pain: adequately controlled Airway Patency, RR, SpO2: stable & adequate BP & HR: stable & adequate Hydration State: stable & adequate Anesthetic Complications: no major complications apparent
--- NOTE | 2022-04-24 14:47 | Electrocardiogram Report ---
Test Reason : Blood Pressure : / mmHG Vent. Rate : 063 BPM Atrial Rate : 063 BPM P-R Int : 174 ms QRS Dur : 082 ms QT Int : 444 ms P-R-T Axes : 007 -02 -69 degrees QTc Int : 454 ms Poor data quality, interpretation may be adversely affected Sinus Rhythm with some atrial paced beats V paced (possible his pacing) Abnormal ECG No previous ECGs available Confirmed by Guy Carvalho ([id number]) on 04/24/2022 2:46:48 PM Referred By: REFERRED SELF Confirmed By:Guy Carvalho
[2022-04-24] MEDS ORDERED: ALPRAZolam 0.25 MG TABLET PO PRN (15:19)
[2022-04-24] MEDS: SIMVASTATIN 20 MG TAB PO SCH (21:14)
[2022-04-25 06:56] LABS: Hematocrit (blood only) 28.2 % (34.1-44.9); Hemoglobin 9.3 g/dl (12.0-16.0); Immature Granulocytes # (auto) 0.04 K/uL (0.00-0.02); Immature Granulocytes % (auto) 0.4 %; Lymphocytes % (auto) 5.5 %; Mean Corpuscular Hemoglobin 31.2 pg (25.0-34.0); Mean Corpuscular Volume 94.6 fL (80.0-100.0); Mean Platelet Volume 9.6 fL (9.4-12.3); Monocytes % (auto) 5.5 %; Neutrophils % (auto) 88.6 %; Platelet Count 161 K/uL (130-400); RDW Coefficient of Variation 13.6 % (11.5-14.5); RDW Standard Deviation 46.2 fL (36.4-46.3); Red Blood Count 2.98 M/uL (3.93-5.22); White Blood Count 9.14 K/ul (4.8-10.8)
[2022-04-25 07:58] LABS: BUN Creatinine Ratio 21.5 (10-20); Calcium 8.2 mg/dl (8.5-10.1); Creatinine Clr Calc Pharmacy 40.9 ml/min; Est GFR (African American) 57.6 ml/min; Est GFR (Non-African American) 49.7 ml/min; Potassium 4.1 mmol/L (3.5-5.1)
[2022-04-25] MEDS: allopurinoL 100 MG TAB PO SCH (08:54)
[2022-04-25] MEDS: PARoxetine HCL 10 MG TAB PO SCH (08:54)
[2022-04-25] MEDS: APIXABAN 2.5 MG TAB PO SCH ×2 (08:54→20:44)
[2022-04-25] MEDS: METOPROLOL SUCC 25MG EXT REL TAB PO SCH (08:54)
[2022-04-25] MEDS: oxyCODONE/ACETAMINOPHEN 5mg/325mg TAB PO PRN ×3 (08:59→20:44)
[2022-04-25] MEDS ORDERED: ERGOCALCIFEROL 50,000 UNITS 1250 MCG CAP PO SCH (09:30)
[2022-04-25] MEDS: MoRPHine SULFATE 2 MG/ML CARP IV PRN (10:52)
--- NOTE | 2022-04-25 12:20 | Hospitalist Progress Note ---
Date of Service April 25, 2022 Assessment & Plan (1) Intertrochanteric fracture of right hip: Plan Mechanical fall Right hip fracture on the background of age-related osteoporosis Patient tripped on her own shoes, fell on her right side on pavement 04/24/2007/03/2022: Status post right intramedullary pamella placement, right femur, by Dr. Clemens Doing well postop PRN Percocet, Morphine On Eliquis 2.5 mg p.o. twice daily for DVT prophylaxis PT and OT evaluation: Recommending rehab Nonischemic cardiomyopathy, status post AICD Hypertension --Hold torsemide and lisinopril Chronic medical conditions: Hyperparathyroidism Gout Osteoporosis Vitamin D deficiency DVT prophylaxis: Eliquis 2.5 mg p.o. twice daily Full code Disposition PT and OT evaluation: Recommending rehab Admission and Anticipated Discharge Date Admission Date: April 23, 2022 Subjective Follow-up right hip fracture, status post surgery, etc. Seen resting in bed, comfortable in good spirits States she feels fine overall Minimal right hip pain with movement No shortness of breath no chest pain, dizziness No other symptoms Review of Systems Review of Systems: all noted and negative except for above Physical Exam Physical Exam: General- oriented x 3, not in distress, speaks in sentences with no effort or accessory muscle use Eyes- anicteric Neck- no JVD Lungs- clear breath sounds bilaterally, no rales/wheezes Heart- normal rate, regular rhythm; no murmurs Abdomen- normal bowel sounds, nondistended, soft, nontender Extremities- no pretibial edema, no calf tenderness Right hip, moderate edema, no hematoma, dressing in place, no bleeding or discharge Neuro- alert, oriented x 3; no gross focal neurologic deficits Skin- warm & dry Results & Data Results & Data ([facility]) Vital Signs (Past 12 Hours) Vital Signs Temp Pulse Pulse Pulse Resp BP Pulse Ox 04/25/22 11:41 36.8 C 78 18 121/68 96 04/25/22 08:00 04/25/22 07:59 36.1 C L 86 16 138/76 95 04/25/22 07:02 73 04/25/22 04:19 36.7 C 71 20 133/80 95 04/25/22 00:47 70 O2 Del Method 04/25/22 11:41 Room Air 04/25/22 08:00 Room Air 04/25/22 07:59 Room Air 04/25/22 07:02 04/25/22 04:19 Room Air 04/25/22 00:47 all noted and reviewed including below
--- NOTE | 2022-04-25 18:00 | Orthopedic Progress Note ---
Date of Service April 25, 2022 Assessment & Plan (1) Intertrochanteric fracture of right hip: Overall she is doing as well as expected. She can be weightbearing as tolerated on her right hip. She is on Eliquis 2.5 mg twice a day for DVT prophylaxis for 6 weeks. She can be discharged when medically ready. She will follow-up with orthopedics in 2 weeks for staple removal. Full orthopedic discharge instructions were placed in the discharge summary. Please contact me if you have any further questions. Beth Rojas was seen and examined at bedside this afternoon. Overall she is doing fairly well. She was able to put a little bit of weight on her right hip today with therapy. Her pain is well controlled and she has no complaints.. Review of Systems All systems reviewed & are unremarkable except as noted in HPI & below. Physical Exam On physical examination of the right hip, the dressings are clean and dry. She has active dorsiflexion plantarflexion of her right ankle. Her leg lengths are equal. Sensation is intact.. Results & Data Results & Data Laboratory Results . Diagnostic Findings . PG Care Time/CCT Total # of Minutes Spent Total Time Spent with Patient: Total time spent is greater than 50% in coordination of care (as documented) at patient's floor/unit and/or counseling patient: Coding Level of Care Code 68122 Post Operative Follow-Up Diagnoses Intertrochanteric fracture of right hip S72.141A
[2022-04-25] MEDS: SIMVASTATIN 20 MG TAB PO SCH (20:44)
[2022-04-26] MEDS: ACETAMINOPHEN 325 MG TAB PO PRN (05:48)
[2022-04-26] MEDS: METOPROLOL SUCC 25MG EXT REL TAB PO SCH (08:09)
[2022-04-26] MEDS: allopurinoL 100 MG TAB PO SCH (08:09)
[2022-04-26] MEDS: APIXABAN 2.5 MG TAB PO SCH (08:09)
[2022-04-26] MEDS: PARoxetine HCL 10 MG TAB PO SCH (08:09)
[2022-04-26 09:57] LABS: Basophils # (auto) 0.03 K/uL (0-0.2); Basophils % (auto) 0.5 %; Eosinophils # (auto) 0.17 K/uL (0-0.50); Eosinophils % (auto) 2.6 %; Hemoglobin 9.2 g/dl (12.0-16.0); Immature Granulocytes # (auto) 0.03 K/uL (0.00-0.02); Immature Granulocytes % (auto) 0.5 %; Lymphocytes # (auto) 0.77 K/uL (1.2-3.4); Lymphocytes % (auto) 11.6 %; Mean Corpuscular Hemoglobin 31.2 pg (25.0-34.0); Mean Corpuscular Hgb Conc 32.9 g/dL (32.0-36.0); Mean Corpuscular Volume 94.9 fL (80.0-100.0); Mean Platelet Volume 9.7 fL (9.4-12.3); Monocytes # (auto) 0.46 K/uL (0.24-0.82); Monocytes % (auto) 6.9 %; Neutrophils # (auto) 5.18 K/uL (1.4-6.5); Neutrophils % (auto) 77.9 %; Platelet Count 174 K/uL (130-400); RDW Standard Deviation 48.5 fL (36.4-46.3); Red Blood Count 2.95 M/uL (3.93-5.22); White Blood Count 6.64 K/ul (4.8-10.8)
[2022-04-26] MEDS: oxyCODONE/ACETAMINOPHEN 5mg/325mg TAB PO PRN (10:13)
--- NOTE | 2022-04-26 13:02 | Hospitalist Progress Note ---
Date of Service April 26, 2022 Assessment & Plan (1) Intertrochanteric fracture of right hip: Plan Mechanical fall Right hip fracture on the background of age-related osteoporosis Patient tripped on her own shoes, fell on her right side on pavement 04/24/2007/03/2022: Status post right intramedullary pamella placement, right femur, by Dr. Clemens remains stable overall PRN Percocet, Morphine On Eliquis 2.5 mg p.o. twice daily for DVT prophylaxis PT and OT evaluation: Recommending rehab, awaiting acceptance Nonischemic cardiomyopathy, status post AICD Hypertension -- euvolemic BP on the lower side --Hold torsemide and lisinopril -- re-evaluated volume status daily Chronic medical conditions: Hyperparathyroidism Gout Osteoporosis Vitamin D deficiency DVT prophylaxis: Eliquis 2.5 mg p.o. twice daily Full code Disposition PT and OT evaluation: Recommending rehab, awaiting acceptance Admission and Anticipated Discharge Date Admission Date: April 23, 2022 Subjective ff up s/p R hip fracture surgery, etc seen resting in bed, comfortable states she feels fine overall mild pain on the R hip no other symptoms no chest pain, dyspnea, palpitations, dizziness Review of Systems Review of Systems: all noted and negative except for above Physical Exam Physical Exam: General- oriented x 3, not in distress, speaks in sentences with no effort or accessory muscle use Eyes- anicteric Neck- no JVD Lungs- clear BS bilaterally, no rales/wheezes Heart- normal rate, regular rhythm; no murmurs Abdomen- normal bowel sounds, nondistended, soft, nontender Extremities- no pretibial edema, no calf tenderness R hip- moderate edema no bleeding/discharge on the dressing Neuro- alert, oriented x 3; no gross focal neurologic deficits Skin- warm & dry Results & Data Results & Data ([facility]) Vital Signs (Past 12 Hours) Vital Signs Temp Pulse Pulse Resp BP Pulse Ox O2 Del Method 04/26/22 11:33 36.4 C L 62 18 112/74 91 04/26/22 07:58 36.9 C 84 20 122/70 90 04/26/22 07:03 87 04/26/22 02:15 36.9 C 83 18 133/75 91 Room Air all noted and reviewed including below
--- NOTE | 2022-04-26 13:21 | Discharge Summary ---
Discharge Summary Date of Service April 26, 2022 Notes For Next Care Provider Lisinopril 10 mg p.o. daily on hold, resume when blood pressure is stable Monitor for signs of bleeding, patient on Eliquis twice a day for DVT prophylaxis X 6 WEEKS Started on vitamin D 50,000 units weekly, repeat vitamin D level in 4 to 6 weeks Please refer to accompanying hospital discharge summary for full details. 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 Per patient, she was trying to get on the shuttle for football game today when she might have " self tripped"/caught her one shoe on another shoe, fell on right side on the pavement and found to have right femoral fracture in the ED. Patient reports being able to walk 3-4 blocks and able to climb 2-3 flight of stairs without chest pain or shortness of breath in the recent past, denies any fever/chills/cough/chest pain/palpitations/belly pain/acute changes in bowel or bladder habits/headache/dizziness/sore throat/other review of symptoms. Patient denies smoking tobacco/use of alcohol/use of recreational drugs. Family history of heart problems in uncle and cancer in mother. Cancer and hypertension in father. Admission Exam Per Admitting Provider GENERAL: Alert and oriented x3. NAD, on RA. HEENT: No pallor, no icterus. Pupils equal, round and reactive to light. Oral mucosa moist. NECK: No JVD, no neck masses. HEART: S1 and S2 heard. Regular rate and rhythm. No murmur, no gallop. RESPIRATORY SYSTEM: Normal AP diameter. No accessory muscle use. No wheezing, no crackles. ABDOMEN: Soft, bowel sounds present, nontender, no distention. CENTRAL NERVOUS SYSTEM: No facial droop. Speech is clear. Obeys simple commands. Moves extremities. EXTREMITIES: No edema, no erythema seen. RLE w/ decrease ROM, Rt Hip tender w/ palpation/movement. distal NV status wnl. No open wound or bruise on Rt hip. Urinary catheter with maile urine collection noted. Principal Dx & Hospital Course #1 = Principal Diagnosis (1) Intertrochanteric fracture of right hip: Plan Mechanical fall Intertrochanteric fracture of right hip: on the background of age-related osteoporosis Patient tripped on her own shoes, fell on her right side on pavement 04/24/2007/03/2022: Status post right intramedullary samy placement, right femur, by Dr. Clemens remains stable overall PRN Percocet, Morphine GIVEN On Eliquis 2.5 mg p.o. twice daily for DVT prophylaxis x6 weeks PT and OT evaluation: Recommending rehab Weightbearing as tolerated on the right lower extremity Follow-up with orthopedic surgeon Dr. Clemens in 2 weeks for staple removal Nonischemic cardiomyopathy, status post AICD Hypertension -- euvolemic BP on the lower side --Continue torsemide Hold usual lisinopril 10 mg p.o. daily, reevaluate -- re-evaluated volume status daily Chronic medical conditions: Hyperparathyroidism Gout Osteoporosis Vitamin D deficiency--vitamin D 50,000 units weekly ordered, repeat vitamin D in 4 to 6 weeks DVT prophylaxis: Eliquis 2.5 mg p.o. twice daily x6 weeks Full code Disposition PT and OT evaluation: Recommending rehab Discharge Exam General- oriented x 3, not in distress, speaks in sentences with no effort or accessory muscle use Eyes- anicteric Neck- no JVD Lungs- clear BS bilaterally, no rales/wheezes Heart- normal rate, regular rhythm; no murmurs Abdomen- normal bowel sounds, nondistended, soft, nontender Extremities- no pretibial edema, no calf tenderness R hip- moderate edema no bleeding/discharge on the dressing Neuro- alert, oriented x 3; no gross focal neurologic deficits Skin- warm & dry Updated Medication List Medication Instructions Recorded Confirmed Type Aspir-81 81 mg HS 04/23/22 04/23/22 History allopurinol 100 mg tablet 100 mg DAILY 04/23/22 04/23/22 History alprazolam 0.25 mg tablet 0.25 mg PO DAILY PRN severe anxiety 04/23/22 04/23/22 History metoprolol succinate 50 mg 25 mg PO QAM 04/23/22 04/23/22 History tablet,extended release 24 hr oxycodone-acetaminophen 5 mg-325 1 tab Q4H PRN Pain 04/23/22 04/23/22 History mg tablet paroxetine HCl 10 mg tablet 10 mg PO DAILY 04/23/22 04/23/22 History simvastatin 20 mg tablet 20 mg HS 04/23/22 04/23/22 History torsemide 20 mg tablet 20 mg DAILY 04/23/22 04/23/22 History apixaban 2.5 mg tablet (Eliquis) 2.5 mg PO BID 30 days #60 tabs 04/26/22 Rx ergocalciferol (vitamin D2) 1,250 50,000 unit PO Q7D #4 caps 04/26/22 Rx mcg (50,000 unit) capsule Hospital Stay Data Consultations 04/23/22 13:07 ED Decision to Admit Stat 04/23/22 13:27 Consult Orthopedic Surgery Stat Procedures Performed Operation Date: 04/23/22 15:30 <No data on this case meets the specified criteria> Operation Date: 04/24/22 10:00 Actual Procedures p Right Intramedullary Samy Femur(Right) - Taurus Clemens DO Diagnostic Imagining Performed Chest X-Ray 04/23/22 11:50 XR chest 1V portable CLINICAL HISTORY: fall COMPARISON STUDY: No previous studies for comparison. FINDINGS: Left subclavian pacer/AICD is in place. There is severe osteoarthritis of both shoulders. No pneumothorax or pleural effusion. No consolidation to suggest pneumonia. Cardiac size is normal. Mediastinal contours are normal. Pulmonary vascularity is normal. IMPRESSION: No acute cardiopulmonary findings. ACT 112: Negative or not required by law. Electronically signed by: Gaudencio Land M.D. 04/23/2022 12:16 PM Hip X-Ray 04/24/22 07:00 FL hip RT 2-3V HISTORY: 76 years-old Female RIGHT TROCH NAIL acute fracture of the right hip COMPARISON: Right hip radiographs 04/23/2022 TECHNIQUE: 4 spot fluoroscopic images of the right hip were obtained utilizing 45.0 seconds fluoroscopy time FINDINGS: Status post placement of an intratrochanteric nail with medullary samy fixating the acute intertrochanteric fracture. There is improved near anatomic alignment. The hardware appears intact. Moderate right hip osteoarthritis. Expected postoperative soft tissue swelling with deep tissue air. No unexpected opaque foreign body identified. IMPRESSION: Fluoroscopic assistance as above. ACT 112: Negative or not required by law. The above report was generated using voice recognition software. It may contain grammatical, syntax or spelling errors. Electronically signed by: Oz Llanos M.D. 04/24/2022 1:40 PM 04/24/22 07:00 FL hip RT 2-3V Routine Pending Results Patient Have Any Pending Studies at Discharge: No Discharge Instructions Given to Patient (Per Discharging Provider) PLEASE REFER TO HOSPITAL DISCHARGE SUMMARY. Total Time Total Time Spent Total Time Spent (In Minutes): >30 MINUTES
== END 2022-04-26 15:24 | DRG 481 ==
LOC: ED 11:14 → 2N 13:18 → SUATTDRO 13:18 → 2N 14:39
DX: I50.22 Chronic systolic (congestive) heart failure; W18.49XA Other slipping, tripping and stumbling without falling, initial encounter; Z87.891 Personal history of nicotine dependence; E21.3 Hyperparathyroidism, unspecified; Z85.72 Personal history of non-Hodgkin lymphomas; I13.0 Hypertensive heart and chronic kidney disease with heart failure and stage 1 through stage 4 chronic kidney disease, or unspecified chronic kidney disease; N18.32 Chronic kidney disease, stage 3b; M10.9 Gout, unspecified; Y92.009 Unspecified place in unspecified non-institutional (private) residence as the place of occurrence of the external cause; I44.7 Left bundle-branch block, unspecified; T45.1X5A Adverse effect of antineoplastic and immunosuppressive drugs, initial encounter; Z95.810 Presence of automatic (implantable) cardiac defibrillator; Y92.481 Parking lot as the place of occurrence of the external cause; M80.051A Age-related osteoporosis with current pathological fracture, right femur, initial encounter for fracture; I42.7 Cardiomyopathy due to drug and external agent